=== PATIENT | female | born 1940 | race Caucasian/White ===

== ENCOUNTER 2018-03-17 10:37 | Emergency (ER) | payer MEDICARE, MEDICAID ==
--- NOTE | 2018-03-17 11:00 | Emergency Department Record ---
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 The symptoms started with a runny nose with drainage. She tried Sudafed for the runny nose. Soon after a cough started. No fever. She is unsure if the cough is productive. No other ongoing health issues. No vomiting, diarrhea, chest pain, swelling. No other acute changes in her health. Her PCP is Dr Hollins. Complaint: Cough Onset/Timin -: Week(s) Quality: Other Consistency: Constant Improves With: Nothing Worsens With: Nothing Context: Other Associated Symptoms: Denies other symptoms, Cough - Related Data Home Medications Medication Instructions Recorded Confirmed Last Taken Ibuprofen [Ibu] 600 mg PO TID 03/17/18 03/17/18 Unknown Levothyroxine Sodium [Synthroid] 137 mcg PO DAILY 03/17/18 03/17/18 Unknown Phenytoin Sodium Extended 100 mg PO TID 03/17/18 03/17/18 Unknown [Dilantin] Simvastatin 80 mg PO TID 03/17/18 03/17/18 Unknown Previous Rx's Medication Instructions Recorded Azithromycin [Zithromax] 250 mg PO DAILY #4 tab 03/17/18 Allergies Allergy/AdvReac Type Severity Reaction Status Date / Time divalproex sodium Allergy HYPERSENSIT Verified 03/17/18 10:53 [From Depakote] IVITY Sulfa (Sulfonamide Allergy HIVES Verified 03/17/18 10:53 Antibiotics) Travel Screening - Travel/Exposure Within Last 30 Days Have you traveled within the last 30 days?: No Review of Systems Constitutional: Denies: Chills, Fever, Malaise, Weakness Eyes: Denies: Eye discharge ENT: Reports: Congestion. Denies: Dental pain Respiratory: Reports: Cough. Denies: Dyspnea, Wheezes Cardiovascular: Denies: Chest pain, Palpitations, Syncope Endocrine: Denies: Fatigue Gastrointestinal: Denies: Abdominal pain, Diarrhea, Nausea, Vomiting Genitourinary: Denies: Dysuria, Urgency Musculoskeletal: Denies: Arthralgia, Back pain, Myalgia Skin: Denies: Bruising, Change in color, Rash Neurological: Denies: Headache, Numbness, Weakness Psychiatric: Denies: Anxiety Hematological/Lymphatic: Denies: Easy bleeding, Easy bruising Past Medical History - SOCIAL HISTORY Smoking Status: Never smoker Alcohol Use: None Drug Use: None - RESPIRATORY Hx Respiratory Disorders: No - CARDIOVASCULAR Hx Cardio Disorders: No - NEURO Hx Neuro Disorders: Yes Hx CVA: Yes Hx Seizures: Yes Comment:: TBI - GI Hx GI Disorders: No - Hx Genitourinary Disorders: No - ENDOCRINE Hx Endocrine Disorders: Yes Hx Thyroid Disease: Yes - MUSCULOSKELETAL Hx Musculoskeletal Disorders: No - PSYCH Hx Psych Problems: No - HEMATOLOGY/ONCOLOGY Hx Hematology/Oncology Disorders: No Family Medical History Any Significant Family History?: No Physical Exam - General General Appearance: Alert, Oriented x3, Cooperative, No acute distress Limitations: No limitations - Head Head exam: Normal inspection - Eye Eye exam: negative: Normal appearance (left eye chronic opacification), Conjunctival injection, Scleral icterus - ENT ENT exam: Normal exam, Mucous membranes moist Ear exam: Normal external inspection Nasal Exam: Normal inspection Mouth exam: Normal external inspection Teeth exam: Normal inspection - Neck Neck exam: Normal inspection, Full ROM. negative: Tenderness - Respiratory Respiratory exam: Normal lung sounds bilaterally. negative: Respiratory distress - Cardiovascular Cardiovascular Exam: Regular rate, Normal rhythm, Normal heart sounds - GI/Abdominal GI/Abdominal exam: Soft. negative: Tenderness - Rectal Rectal exam: Deferred - exam: Deferred - Extremities Extremities exam: negative: Pedal edema, Tenderness - Back Back exam: Denies: CVA tenderness (R), CVA tenderness (L) - Neurological Neurological exam: Alert, Oriented X3 - Psychiatric Psychiatric exam: Normal affect, Normal mood - Skin Skin exam: Dry, Intact, Normal color, Warm Course Vital Signs 03/17/18 10:48 Temperature 97.6 F Pulse Rate 86 Respiratory 20 Rate Blood Pressure 127/72 Pulse Ox 97 - Reevaluation(s) Reevaluation #1: The vitals were reviewed No acute changes. No hypoxia or tachycardia. She is well appearing without conversational dyspnea 03/17/18 10:59 03/17/18 11:37 The CXR was read as no acute process Disposition Disposition: Discharge Clinical Impression: Bronchitis Disposition: Home, Self-Care Condition: (1) Good Instructions: Acute Bronchitis (ED) Additional Instructions: Call Dr Hollins for a recheck this week Return to the ER if worse, fever, short of breath or any new concerns Prescriptions: Azithromycin [Zithromax] 250 mg PO DAILY #4 tab Forms: Patient Portal Access Time of Disposition: 11:37 Quality - Quality Measures Quality Measures: N/A - Blood Pressure Screening Does Patient Have Any of the Following: No Blood Pressure Classification: Pre-Hypertensive BP Reading Systolic Measurement: 127 Diastolic Measurement: 72 Screening for High Blood Pressure: < Pre-Hypertensive BP, F/U Documented > [ [id number]] Pre-Hypertensive Follow-up Interventions: Referral to alternative/primary care provider.
[2018-03-17] MEDS ORDERED: AZITHROMYCIN 500 MG TABLET PO ONE (11:45)
--- NOTE | 2018-03-19 09:07 | RADIOLOGY REPORT ---
EXAM: CHEST, TWO VIEWS HISTORY: COUGH FOR TEN DAYS. TECHNIQUE: Two views of the chest were obtained. Comparison: 05/01/03. FINDINGS: The cardiomediastinal silhouette is borderline enlarged though stable. Similar elevation of the left hemidiaphragm. Similar coarsened interstitial markings within the chest likely relate to scarring/fibrosis. IMPRESSION: NO ACUTE CARDIOPULMONARY ABNORMALITY. JOB NUMBER: [id number] MTDD
== END 2018-03-17 11:58 | disposition home or self-care (01) ==
LOC: ER 10:37
DX: J20.9 Acute bronchitis, unspecified (principal)
CPT/HCPCS: 71046; 99283